=== PATIENT | female | born 1990 | race Caucasian/White ===

== ENCOUNTER 2023-07-20 20:51 | Emergency (ER) | payer BC ==
[~2023-07-20] VITALS: Ht 162.6 cm; Wt 108.4 kg
[2023-07-20 21:56] VITALS: BP 112/37; PULSE 86; RESP 18; TEMP 96.8; O2SAT 96
[2023-07-21] MEDS: ACETAMINOPHEN EXTRA STRENGTH 500 MG TAB PO ONE (01:47)
[2023-07-21] MEDS: KETOROLAC 30 MG/ML VIAL IM ONE (01:47)
[2023-07-21 01:49] VITALS: BP 112/37; PULSE 86; RESP 18; TEMP 96.8; O2SAT 96
== END 2023-07-21 01:19 | disposition home or self-care (01) ==
LOC: MED 20:51
DX: M79.605 Pain in left leg (principal); M79.604 Pain in right leg; F15.90 Other stimulant use, unspecified, uncomplicated; Z88.8 Allergy status to other drugs, medicaments and biological substances
CPT/HCPCS: 96372; 99283; J1885